=== PATIENT | male | born 1990 | race Caucasian/White ===

== ENCOUNTER 2017-04-10 02:05 | Emergency (ER) | payer MEDICAID ==
[~2017-04-10] VITALS: Ht 175.3 cm; Wt 84.0 kg
[2017-04-10 02:25] VITALS: Ht 175.3 cm; Wt 84.0 kg
[2017-04-10 06:45] VITALS: BP 129/79
== END 2017-04-10 06:45 | disposition home or self-care (01) ==
LOC: ED 02:05
DX: K52.9 Noninfective gastroenteritis and colitis, unspecified (principal); M79.1 Myalgia; J11.1 Influenza due to unidentified influenza virus with other respiratory manifestations
CPT/HCPCS: Q0162

== ENCOUNTER 2017-07-17 16:51 | Emergency (ER) | payer MEDICAID ==
[~2017-07-17] VITALS: Ht 172.7 cm; Wt 84.4 kg
[2017-07-17 16:58] VITALS: BP 120/69; Ht 172.7 cm; Wt 84.4 kg
== END 2017-07-17 18:25 | disposition home or self-care (01) ==
LOC: ED 16:51
DX: B00.1 Herpesviral vesicular dermatitis (principal)

== ENCOUNTER 2017-11-16 20:11 | Emergency (ER) | payer MEDICAID ==
[~2017-11-16] VITALS: Ht 172.7 cm; Wt 84.9 kg
[2017-11-16 20:25] VITALS: Ht 172.7 cm; Wt 84.9 kg
[2017-11-16 22:09] VITALS: BP 116/64
== END 2017-11-16 22:09 | disposition home or self-care (01) ==
LOC: ED 20:11
DX: K29.70 Gastritis, unspecified, without bleeding (principal); R53.1 Weakness; R07.89 Other chest pain
CPT/HCPCS: Q0162